=== PATIENT | male | born 1955 | race Caucasian/White ===

== ENCOUNTER → 2018-09-15 | Outpatient (CLI) | payer BC ==
[2016-01-23 10:21] VITALS: BP 136/81
[~2018-09-15] MED LIST: ASPI-482 PO; CRESTOR10 MG PO; CRESTOR20 MG PO; ESCITALOPRAM OX10 MG PO; GABA-585 PO; HYDR-3164 PO; IOHEXOL 300 MG/ML 100ML VIAL. IV ONE; PROP20TA PO; PROP80CA3 PO; RED600CA2 PO
--- NOTE | 2018-09-15 15:12 | KCIC ---
Carotid doppler ultrasound History: Peripheral vascular disease, hypertension, smoker, right bruit Multiple grayscale, color, and duplex spectral analysis waveform sonographic images were acquired of the carotid, subclavian, and vertebral arteries. Comparison: None Findings: RIGHT: PSV cm/sec EDV cm/sec Common carotid artery 137 15 Maximal internal carotid artery 119 19--- not seen beyond mid segment External carotid artery 176 Vertebral artery 31 ICA/CCA ratio 0.87 LEFT: PSV cm/sec EDV cm/sec Common carotid artery 88 24 Maximum internal carotid artery 179 76 External carotid artery 111 Vertebral artery 48 ICA/CCA ratio 2.03 Velocities used to determine stenosis are known to correlate with NASCET angiographic criteria. There is antegrade flow in the bilateral vertebral arteries. There is no demonstrable flow beyond the proximal right internal carotid artery, severe plaque of the right internal carotid artery. There is also prominent plaque of the common carotid arteries bilaterally greater on the right, also involvement of the left internal and external carotid arteries. There is some shadowing plaque of the left internal carotid artery which limits accurate evaluation of the entirety of the lumen, appearance of more focal stenosis. Impression: 1. There is apparent occlusion of the mid to distal right internal carotid artery. There is severe plaque of the right internal carotid artery, other scattered plaque of the bilateral common carotid arteries and also of the left internal and external carotid arteries. Shadowing plaque on the left somewhat limits accurate evaluation of the lumen. 2. Velocity elevation of the left internal carotid artery may be seen with 50-69% luminal diameter reduction. FOR INTERNAL CODING PURPOSES Critical result: Findings discussed with JENNY LABOY at 09/15/2018 3:00 PM. RESULT CODE: (C) Electronically signed by: Brett Tipton MD (09/15/2018 3:09 PM) [id number]
--- NOTE | 2018-09-16 10:13 | KCIC ---
PQRS Compliance Statement: One or more of the following individualized dose reduction techniques were utilized for this examination: 1. Automated exposure control 2. Adjustment of the mA and/or kV according to patient size 3. Use of iterative reconstruction technique CT angiography abdomen and iliofemoral runoff 09/16/2018 INDICATION: Peripheral artery disease with claudication. Prior surgery 2 years ago. COMPARISON: CTA abdomen/iliofemoral runoff December 30, 2015 TECHNIQUE: Multiple axial CT images of the abdomen and bilateral lower extremities was performed after the intravenous administration of 100 cc Omnipaque 300. Coronal and sagittal reformats are provided. FINDINGS: Stable 3 mm calcified nodule at the right lung base just above a vessel or granuloma. Mild bronchial wall thickening is compatible with bronchitis. Heart size is within normal limits. There is hypoattenuation of the hepatic parenchyma suggestive of hepatocellular disease. Cholelithiasis. No splenomegaly. Lateral limb left adrenal gland has nodular morphology measuring up to 8 mm in thickness. Right adrenal nodule measures 2.0 x 1.4 cm. Findings are stable and likely reflect benign adrenal adenomas. No suspicious pancreatic mass is visualized. Small left inguinal hernia containing fat. No pathologically enlarged lymph nodes are identified in abdomen or pelvis. There is no free fluid or free intraperitoneal air. There is a 3.8 cm simple cyst in the superior pole the left kidney, stable. The kidneys enhance symmetrically. There is no suspicious renal mass. There is no hydronephrosis. There are no suspected calculi within the kidneys, ureters or urinary bladder. There is mild colonic diverticulosis. A normal appendix is not visualized. There is similar appearance of a possible loop of small bowel extending into the right inguinal hernia. Prostate and seminal vesicles are normal in appearance with exception of a static calcifications. Urinary bladder is within normal limits given degree of distention. No suspicious osseous abnormality is identified. Vascular findings: Abdominal aorta at the aortic hiatus measures 2.7 x 2.6 cm. Origin of the celiac axis appears widely patent with patent origins of the common hepatic artery, splenic artery and left gastric artery. There is noncalcified atheromatous plaque at the origin of the superior mesenteric artery resulting in mild stenosis. Eccentric thrombus is identified within the mid superior mesenteric artery without occlusion. Mild stenosis of the origin of the right renal artery and mild stenosis of the origin of the left renal artery secondary to calcified and noncalcified atheromatous plaque. There is advanced calcified and noncalcified atheromatous plaque involving the abdominal aorta. Infrarenal abdominal aortic aneurysm measures 3.6 x 3.2 cm. Infrarenal abdominal aorta previously measured 3.0 x 2.8 cm December 30, 2015. Right common iliac artery is moderate calcified atheromatous plaque without significant stenosis, stable from prior examination. There is moderate to advanced calcified atheromatous plaque involving the right internal iliac artery, similar to the prior examination. Moderate calcified atheromatous plaque is identified involving the right sternal iliac artery with short segment 50% stenosis which appears stable along the mid right external iliac artery. Interval angioplasty of the right common femoral artery which is widely patent. There is moderate focal stenosis involving the proximal superficial femoral artery. Interval angioplasty with resolution of previously seen high-grade stenosis secondary to calcified plaque. Focal irregularities noted involving the right fissural femoral artery. There is moderate stenosis involving the proximal right popliteal artery. Stable dense calcified atheromatous plaque involving the popliteal artery in the popliteal fossa with likely high-grade stenosis. There is chronic appearing occlusion of the posterior tibial artery. Anterior tibial artery is mildly irregular, patent to the foot with patent dorsalis pedis artery. Peroneal artery appears patent. Mild irregularity of the left common iliac artery with chronic dissection flap. Moderate to advanced plaque is noted involving the left internal iliac artery. Moderate calcified atheromatous plaque is identified involving the left external iliac artery with mild irregularity. There is moderate focal stenosis involving the left common femoral artery which appears stable. Origin of the profunda appears intact. Left superficial femoral artery has mild calcified atheromatous plaque with mild irregularity. There is moderate calcified atheromatous plaque involving the left popliteal artery with moderate focal stenosis (series 4, image 454). Focal moderate stenosis of the popliteal artery is new from the prior examination. Dense calcified atheromatous plaque is identified in the left anterior tibial artery, limiting evaluation. Coronal artery is patent. Posterior tibial artery is patent to the foot. Left dorsalis pedis artery is poorly visualized. IMPRESSION: 1. Infrarenal abdominal aortic aneurysm measuring 2.6 x 3.2 cm, previously measuring 3.0 x 2.8 cm. 2. Interval angioplasty of the right common femoral artery and proximal superficial femoral artery. There is mild to moderate focal stenosis involving the proximal right superficial femoral artery. Next line 3. Stable dense calcified plaque involving the right popliteal artery in the popliteal fossa with suggestion of high-grade stenosis. 4. New moderate focal stenosis involving the left mid popliteal artery. 5. Moderate to advanced focal irregularity of the left anterior tibial artery with poor visualization of the left dorsalis pedis artery. Right anterior tibial artery is patent to the foot. 6. Similar moderate irregularity and focal stenosis involving the left common femoral artery. 7. Additional findings, as described in detail above. Electronically signed by: Hilda Bañuelos MD (09/16/2018 10:10 AM) [id number]
== END | disposition home or self-care (01) ==
LOC: KCIC CT 13:22
PROVIDERS: ATTEND Registered Nurse Medical-Surgical
DX: I65.23 Occlusion and stenosis of bilateral carotid arteries (principal); I71.4 Abdominal aortic aneurysm, without rupture; I70.8 Atherosclerosis of other arteries; I70.209 Unspecified atherosclerosis of native arteries of extremities, unspecified extremity; R91.1 Solitary pulmonary nodule; K57.30 Diverticulosis of large intestine without perforation or abscess without bleeding; K40.90 Unilateral inguinal hernia, without obstruction or gangrene, not specified as recurrent; N28.1 Cyst of kidney, acquired; I10 Essential (primary) hypertension; Z72.0 Tobacco use
CPT/HCPCS: 75635; 82565; 93880; Q9967

== ENCOUNTER → 2018-10-04 | Outpatient (CLI) | payer BC ==
[2016-01-23 10:21] VITALS: BP 136/81
[~2018-10-04] MED LIST changes: +CONTRAST GIVEN. MC PRN
--- NOTE | 2018-10-04 16:13 | KCIC ---
CTA neck History: Peripheral arterial disease, abnormal carotid Doppler exam Technique: After bolus of intravenous contrast, volumetric CT data acquisition was acquired of the neck. Multiplanar reconstruction images to include MIP and 3-D reconstruction images are submitted. Exposure: One or more of the following individualized dose reduction techniques were utilized for this examination: 1. Automated exposure control 2. Adjustment of the mA and/or kV according to patient size 3. Use of iterative reconstruction technique. Comparison: September 15, 2018 carotid Doppler exam Any determination of stenosis is based on NASCET criteria. Findings: There is occlusion of the right cervical internal carotid artery beginning at the common carotid artery bifurcation, visualization of segments of the right external carotid artery branches. There is scattered partially calcified plaque of the right common carotid artery most notable near the bifurcation, also extending to the proximal right internal carotid artery. There is also thrombus or soft plaque at the origin of the occluded right internal carotid artery. There is no significant visualization of the right cervical internal carotid artery beyond the very proximal aspect. There is also scattered calcified plaque of the left common carotid artery greater near the bifurcation, extent to the proximal left internal carotid artery. Maximal luminal diameter reduction of the left proximal internal carotid artery near origin is estimated about 55%. There is some calcified plaque near the left common carotid artery origin without significant focal stenosis. Left vertebral artery is diffusely dominant, markedly diminutive caliber of the right vertebral artery throughout its course although some contribution to the basilar artery. There is likely -type right posterior cerebral artery, possible tiny right P1 segment although does not obviously contribute to the more distal right posterior cerebral artery. There is some reconstitution of the right cavernous and ophthalmic internal carotid artery presumably from a patent anterior communicating artery. Lungs are not fully evaluated. There is emphysema of the visualized lung apices. There is some likely fibrotic change near the lung apices. There is also of focus of noncalcified nodularity of the right apex image 552 series 6 about 0.5 cm. There is what likely represents a node of the superficial left parotid gland as central fatty hilum about 0.7 cm short axis dimension. There is multilevel cervical facet degenerative change, contributes to some variable multilevel cervical neural foramina compromise. Impression: 1. There is occlusion of the right cervical internal carotid artery beginning at the bifurcation. There is plaque of the left carotid bulb and proximal internal carotid artery, maximal luminal diameter reduction of the proximal left internal carotid artery near origin estimated about 55%. There is likely -type right posterior cerebral artery, some reconstitution of the right cavernous and ophthalmic internal carotid artery presumably from patent anterior communicating artery. Intracranial vasculature is not fully evaluated on this exam. 2. Left vertebral artery is dominant, very diminutive caliber right vertebral artery. 3. There is a noncalcified right upper lobe nodule near the apex. If there are increased risk factors for neoplasm, dedicated chest CT may be indicated to further evaluate for nodules. Regarding the visualized nodule, 12 month follow-up could be performed as per revised Fleischner guidelines if increased risk factors for neoplasm, otherwise no additional follow-up needed if low risk factors. There is emphysema of the visualized lung apices. Electronically signed by: Brett Tipton MD (10/04/2018 4:10 PM) [facility]
== END | disposition home or self-care (01) ==
LOC: KCIC CT 08:08
PROVIDERS: ATTEND Registered Nurse Medical-Surgical
DX: I65.23 Occlusion and stenosis of bilateral carotid arteries (principal); J43.9 Emphysema, unspecified; R91.1 Solitary pulmonary nodule; I10 Essential (primary) hypertension; F17.200 Nicotine dependence, unspecified, uncomplicated
CPT/HCPCS: 70498; Q9967

== ENCOUNTER → 2019-08-04 | Outpatient (CLI) | payer BC ==
[2018-11-09 12:00] VITALS: BP 126/71
[~2019-08-04] MED LIST changes: -CONTRAST GIVEN. MC PRN; +CRESTOR40 MG PO; -IOHEXOL 300 MG/ML 100ML VIAL. IV ONE; +LISI-130 PO; +OXYC1TAB15 PO; +ZINC50TA39 PO
== END | disposition home or self-care (01) ==
LOC: LAB 13:30
PROVIDERS: ATTEND Surgery Vascular Surgery
DX: Z01.818 Encounter for other preprocedural examination (principal); Z11.59 Encounter for screening for other viral diseases
CPT/HCPCS: C9803; U0003; 36415

== ENCOUNTER 2019-08-08 08:29 | Outpatient (CLI) | payer BC ==
[2019-08-08] VITALS (9 sets, daily range): BP systolic 153–182; BP diastolic 74–94
[~2019-08-08] VITALS: Ht 182.9 cm; Wt 97.5 kg
[2019-08-08 09:13] LABS: HEMATOCRIT 35.9 % (39.0-53.0); HEMOGLOBIN 12.2 g/dL (13.0-17.5); RED BLOOD COUNT 3.92 x10^6/uL (4.30-5.70); RED CELL DISTRIBUTION WIDTH 14.8 % (11.5-14.5)
[2019-08-08 09:21] LABS: CALCIUM 8.3 mg/dL (8.5-10.1); GFR 74.8
--- NOTE | 2019-08-08 09:25 | PDOC ---
PROGRESS NOTES Subjective Subjective Pt seen and examined in the pre- cath area. H&P reviewed -- there have been no changes. He has a Hx of bilateral ilio-femoral endarterectomy and now has recurrent right leg claudication that has worsened over time and become quite severe and limiting. His right KEVIN is 0.41 We discussed angiography and intervention and the risks /benefits / alternatives, the possible need for surgery, etc and he wishes to proceed. Plan left femoral access, abdominal and bilateral LE runoff and possible right let intervention under conscious sedation and he wishes to proceed. ASA 3 Airway 2 Comment Review of Relevant I have reviewed the following items alena (where applicable) has been applied. Labs Laboratory Tests Test 08/08/19 09:05 White Blood Count 10.0 x10^3/uL (4.0-11.0) Red Blood Count 3.92 x10^6/uL (4.30-5.70) Hemoglobin 12.2 g/dL (13.0-17.5) Hematocrit 35.9 % (39.0-53.0) Mean Corpuscular Volume 92 fL (79-100) Mean Corpuscular Hemoglobin 31 pg (25-35) Mean Corpuscular Hemoglobin Concent 34 g/dL (31-37) Red Cell Distribution Width 14.8 % (11.5-14.5) Platelet Count 166 x10^3/uL (140-400) Laboratory Tests Test 08/08/19 09:05 White Blood Count 10.0 x10^3/uL (4.0-11.0) Red Blood Count 3.92 x10^6/uL (4.30-5.70) Hemoglobin 12.2 g/dL (13.0-17.5) Hematocrit 35.9 % (39.0-53.0) Mean Corpuscular Volume 92 fL (79-100) Mean Corpuscular Hemoglobin 31 pg (25-35) Mean Corpuscular Hemoglobin Concent 34 g/dL (31-37) Red Cell Distribution Width 14.8 % (11.5-14.5) Platelet Count 166 x10^3/uL (140-400) Medications Active Scripts Active Reported Lisinopril 40 Mg Tablet 1 Tab PO DAILY Zinc 50 Mg Tablet 0 PO DAILY Crestor (Rosuvastatin Calcium) 40 Mg Tablet 1 Tab PO QODAY Red Yeast Rice 600 Mg Capsule 600 Mg PO DAILY Not given today Propranolol Hcl 80 Mg Cap.sa.24h 1 Cap PO BID LAST DOSE GIVEN: DATE: 01/23/16 at 9:00am NEXT DOSE DUE: DATE: 01/23/16 at 9:00am Aspir 81 (Aspirin) 81 Mg Tablet.dr 1 Tab PO DAILY LAST DOSE GIVEN: DATE: 01/23/2016 at 9:00am NEXT DOSE DUE: DATE: 01/24/2016 AM Justicifation of Admission Dx: Justifications for Admission: Justification of Admission Dx: POPEYE Nava MD Aug 08, 2019 09:25
[2019-08-08 09:29] LABS: PROTHROMBIN TIME PATIENT 12.8 SEC (11.7-14.0)
[2019-08-08] MEDS ORDERED: IODIXANOL 320 MG/ML 100 ML VIAL. ONE (09:43)
[2019-08-08] MEDS ORDERED: LIDOCAINE 1% Multi-Dose 20 ML VIAL. ONE (09:43)
[2019-08-08] MEDS ORDERED: MIDAZOLAM HCL/PF 5 MG/5 ML VIAL. ONE (09:47)
[2019-08-08] MEDS ORDERED: HEPARIN for IV BOLUS 10,000 UNIT/10 ML VIAL. ONE (09:48)
[2019-08-08] MEDS ORDERED: fentaNYL PF VIAL 100 MCG/2 ML VIAL ONE (09:48)
[2019-08-08] MEDS ORDERED: fentaNYL PF VIAL 100 MCG/2 ML VIAL IV ONE (11:15)
[2019-08-08] MEDS ORDERED: LIDOCAINE 1% Multi-Dose 20 ML VIAL. INJ ONE (11:15)
[2019-08-08] MEDS ORDERED: IODIXANOL 320 MG/ML 100 ML VIAL. IART ONE (11:15)
[2019-08-08] MEDS ORDERED: MIDAZOLAM HCL/PF 5 MG/5 ML VIAL. IV ONE (11:15)
[2019-08-08] MEDS ORDERED: CONTRAST GIVEN. MC PRN (11:15)
--- NOTE | 2019-08-08 11:43 | PDOC4 ---
OPERATIVE NOTE Date: Date: Aug 08, 2019 Pre-Op Diagnosis: Atherosclerosis of solomon arteries of bilateral extremities with severe short distance claudication right leg History of bilateral iliofemoral endarterectomy KEVIN 0.4 right lower extremity Post-Op Diagnosis: Same as above Bilateral iliac artery stenosis versus dissection Small AAA Procedure Performed: 1. Ultrasound-guided access left common femoral artery #2 placement of catheter within the aorta CPT 30306 #3 bilateral lower extremity runoff radiology supervision interpretation #4 aortogram supervision and interpretation #5 placement of closure device left femoral artery access site 5 [place]ut Mynx Surgeon: Fransico Soto MD Vascular surgery Anesthesia Type: Conscious sedation under surgeon and RN supervision using intravenous fentanyl and Versed 30 minutes Versed 1 mg fentanyl 50 mcg Blood Loss: Minimal Specimans Obtained: None Findings: The infrarenal aorta shows what appears to be a small AAA, no significant occlusive disease. The visceral vessels are patent on single AP view Bilateral common iliac arteries show a central luminal filling defect that appears to be calcified, there appear to be 2 separate flow channels within each common iliac artery. It is unclear if this is irregular plaque or focal dissection Bilateral external iliac arteries have moderate calcified stenosis Bilateral common femoral artery endarterectomy sites appear widely patent, bilateral profunda femoris arteries appear patent The right proximal superficial femoral artery is patent, the right distal superficial femoral artery and proximal popliteal artery show calcified high- grade stenosis. The P3 segment of the right popliteal artery and three-vessel tibial disease appear to be reasonably patent The left superficial femoral artery popliteal artery and tibial vessels appear patent without significant flow-limiting stenosis Complications: None Operative Note: Patient was taken to the [employer] and placed supine on the table. The groins were prepped and draped in usual sterile fashion. An appropriate timeout was performed. Conscious sedation was induced under surgeon and RN supervision using intr avenous fentanyl and Versed after confirmation of appropriate monitoring devices. Attention was directed to the left common femoral artery which was fluoroscopically marked over the femoral head and examined with ultrasound. The vessels found to be widely patent with good flow and an image of the vessels taken and saved for the medical record. Under real-time ultrasound guidance local anesthetic was injected in the left groin and the left common femoral artery was accessed with a micropuncture needle. Placement was confirmed under fluoroscopy after the needle was used to introduce a micropuncture wire into the iliac artery. The cylinder technique was used to exchange the needle for micropuncture sheath which backbled easily. This was used to introduce a supra core wire into the aorta and exchange the micropuncture sheath for a 5 [place] sheath which was aspirated and flushed without difficulty. These were used to introduce a flush catheter into the suprarenal abdominal aorta and an aortogram was obtained. The cath was pulled back to the aorta bifurcation and oblique pelvic angiograms were obtained. I attempted to cross the aortic bifurcation but was unable to get a wire through the suspicious part of the right common artery after multiple attempts. With the catheter just above the bifurcation bilateral lower extremity stepped off runoff was obtained down to the feet. The catheter was removed over wire and the sheath was used to deliver and deploy a 5 Y[place] minx closure device to the left femoral artery access site with excellent hemostasis. Given the AAA, the abnormal appearance of the iliac arteries with stenosis versus dissection, and the complicated nature of this I decided to get a CT angiogram to better delineate the problem prior to intervention. I discussed all this with the patient and he agrees. He will be discharged home today with outpatient CTA and follow-up with POPEYE Fuentes MD Aug 08, 2019 11:43
--- NOTE | 2019-08-08 13:49 | NUR ---
Discharge Note: WIL DUFF Discharge instructions and discharge home medications reviewed with Patient and a copy given. All questions have been answered and understanding verbalized. The following instructions and handouts were given: Groin site care, moderate sedation Discontinued lines and drains: Right AC IV dc'd and tip intact. Patient discharged to home with friend Christin via personal vehicle.
== END 2019-08-08 13:30 | disposition home or self-care (01) ==
LOC: CCL 08:29
PROVIDERS: ATTEND Surgery Vascular Surgery
DX: I70.213 Atherosclerosis of native arteries of extremities with intermittent claudication, bilateral legs (principal); I71.4 Abdominal aortic aneurysm, without rupture
CPT/HCPCS: 36200; 36415; 75625; 75716; 76937; 80048; 85027; 85610; 99152; 99153; C1713; C1769; C1892; C1894; G0269; J1644; J2250; J3010; J3490; Q9967

== ENCOUNTER → 2019-08-15 | Outpatient (CLI) | payer BC ==
[2019-08-08 13:13] VITALS: BP 159/87
[~2019-08-15] MED LIST changes: +IOHEXOL 350 MG/ML 100 ML VIAL. IV ONE
--- NOTE | 2019-08-15 11:03 | RAD ---
CT ANGIOGRAPHY ABD AND PELVIS Indication: Abdominal aortic aneurysm Technique: Pre and postcontrast CT imaging was performed of the abdomen pelvis, multiplanar reconstruction images to include MIP and 3-D reconstruction images submitted. One or more of the following individualized dose reduction techniques were utilized for this examination: 1. Automated exposure control 2. Adjustment of the mA and/or kV according to patient size 3. Use of iterative reconstruction technique. Comparison: September 15, 2018 Findings: There is again infrarenal abdominal aortic aneurysm, maximal axial dimension about 3.8 cm transverse by 3.8 cm AP, previously about 3.6 cm transverse by 3.6 cm AP. This begins about 5.2 cm inferior to the left renal artery origin. There is again atherosclerotic calcification of the iliac arteries bilaterally, similar degree of narrowing of the right external iliac artery about 50%. There is again narrowing of the tortuous right common iliac artery, maximal luminal diameter reduction estimated about 65-70%. There are again significant stenoses of the internal iliac arteries bilaterally. There is degree of narrowing of the visualized proximal superficial femoral arteries bilaterally, legs none evaluated on this exam. There is visualization of the inferior mesenteric artery, likely degree of narrowing near the ostium. Celiac and superior mesenteric arteries are patent, again noncalcified plaque of the proximal superior mesenteric artery also plaque more distally. There are again 2 left renal arteries, calcified plaque greater of the dominant left renal artery. There is also plaque of the single right renal artery. There is no abnormality of the limited visualized lung bases. There is a 3.2 cm exophytic hypodense lesion of the superior left kidney with density measurements of a cyst 12 Hounsfield units. There is some vascular calcification of the renal hilar regions bilaterally. There is 1.2 cm gallstone. There is small possible left adrenal nodule about 1 cm stable dating back to 2016 exam. Fullness of right adrenal gland is also similar dating back to older exam. Bowel is not dilated. There is no free fluid or free air. There is colonic diverticulosis greatest of the sigmoid colon not associated with significant inflammatory type change. There is some fat in the left inguinal canal, no bowel. There is lumbar degenerative disc disease greatest L4-5 and L5-S1. There is a 1.1 cm short axis likely node of the superior abdomen located superior to the pancreas larger than previous exam as best seen image 340 series 8, previously about 0.6 cm on the September 2018 exam. There is another node just anteriorly image 337 series 8 measuring about 0.6 cm short axis dimension also larger as previously 0.3 cm. IMPRESSION: 1. Infrarenal abdominal aortic aneurysm is somewhat larger now up to 3.8 cm versus previously 3.6 cm. 2. There are some larger nonspecific nodes of the superior abdomen, one of which is considered somewhat enlarged. While these could be reactive/degenerative, neoplastic etiology is not excluded. Short-term follow-up to assess stability such as in 3 months could be beneficial or evaluation with PET CT. 3. There is multifocal atherosclerotic plaque. 4. There is cholelithiasis. 5. There is colonic diverticulosis. 6. There is left renal cyst. Electronically signed by: Brett Tipton MD (08/15/2019 11:00 AM) [id number]
== END | disposition home or self-care (01) ==
LOC: CT 09:29
PROVIDERS: ATTEND Surgery Vascular Surgery
DX: I71.4 Abdominal aortic aneurysm, without rupture (principal); I70.0 Atherosclerosis of aorta; I70.8 Atherosclerosis of other arteries; I70.1 Atherosclerosis of renal artery; N28.1 Cyst of kidney, acquired; K57.30 Diverticulosis of large intestine without perforation or abscess without bleeding; K80.20 Calculus of gallbladder without cholecystitis without obstruction; M51.37 Other intervertebral disc degeneration, lumbosacral region; I10 Essential (primary) hypertension; F17.200 Nicotine dependence, unspecified, uncomplicated
CPT/HCPCS: 74174; Q9967

== ENCOUNTER → 2019-09-25 | Outpatient (CLI) | payer BC ==
[2019-08-08 13:13] VITALS: BP 159/87
[~2019-09-25] MED LIST changes: -IOHEXOL 350 MG/ML 100 ML VIAL. IV ONE
== END | disposition home or self-care (01) ==
LOC: LAB 13:04
PROVIDERS: ATTEND Surgery Vascular Surgery
DX: Z01.818 Encounter for other preprocedural examination (principal); Z11.59 Encounter for screening for other viral diseases
CPT/HCPCS: U0003-CS

== ENCOUNTER 2019-09-28 07:00 | Outpatient (CLI) | payer BC ==
[2019-09-28] VITALS (17 sets, daily range): BP systolic 114–194; BP diastolic 51–93
[~2019-09-28] VITALS: Ht 182.9 cm; Wt 95.3 kg
[2019-09-28 07:36] LABS: HEMATOCRIT 38.5 % (39.0-53.0); HEMOGLOBIN 13.1 g/dL (13.0-17.5); RED BLOOD COUNT 4.2 x10^6/uL (4.30-5.70); RED CELL DISTRIBUTION WIDTH 14.9 % (11.5-14.5); WHITE BLOOD COUNT 8.9 x10^3/uL (4.0-11.0)
[2019-09-28] MEDS ORDERED: IODIXANOL 320 MG/ML 100 ML VIAL. ONE (07:40)
[2019-09-28] MEDS ORDERED: LIDOCAINE 1% Multi-Dose 20 ML VIAL. ONE (07:41)
[2019-09-28 07:44] LABS: CALCIUM 9.1 mg/dL (8.5-10.1); CREATININE 1.1 mg/dL (0.7-1.3); POTASSIUM 4.3 mmol/L (3.5-5.1)
[2019-09-28 07:46] LABS: PROTHROMBIN TIME PATIENT 12.3 SEC (11.7-14.0)
[2019-09-28] MEDS ORDERED: MIDAZOLAM HCL/PF 5 MG/5 ML VIAL. ONE (08:30)
[2019-09-28] MEDS ORDERED: HEPARIN for IV BOLUS 10,000 UNIT/10 ML VIAL. ONE (08:30)
[2019-09-28] MEDS ORDERED: fentaNYL PF VIAL 250 MCG/5 ML VIAL ONE (08:30)
--- NOTE | 2019-09-28 08:37 | PDOC1 ---
H & P. HPI: 64 y/o male with a Hx of bilateral ilio-femoral endarterectomy for short distance claudication. He had resolution of claudication in both legs initially but now has recurrence of claudication in the right leg, left still asymptomatic. He has no wounds and no ischemic rest pain. His KEVIN is 0.5 on the right, left 0.93 He does smoke and we discussed again the need for smoking cessation and tobacco abuse's contribution to vascular disease and recurrence. He describes his sx as focal aching pain in the right calf that occurs with short distance walking, improves with rest, no other provocative / palliative factors, severe 7/10 and lifestyle limiting. ROS: Constitutional: Denies fever, fatigue, chills HEENT: Denies sore throat, vision changes Cardio: Denies chest pain, dyspnea with exertion, syncope, palpitations, edema Pulmonary: Denies shortness of breath, cough, wheezing GI: Denies nausea, vomiting, diarrhea, constipation : Denies dysuria, frequency, urgency, incontinence Skin: Denies new lesions Neuro: Denies weakness, paresthesias ED COURSE: not ED patient -- here for elective procedure PMH: HTN Tobacco abuse dyslipidemia HTN FAMILY HX: DM dyslipidemia HTN CAD SOCIAL HX: tobacco abuse -- current smoker no ETOH or drug abuse SURGICAL HX: femoral endarterectomy bilateral Hernia inguinal MEDS: Reviewed and reconciled ALLERGIES: Gemfibrozil PE: Alert, oriented, no acute distress EOMI, sclera non-icteric Neck supple RRR, no murmur CTAB, no wheezes, crackles or rhonchi Soft, NT, ND, normal bowel sounds, no rebound, guarding. Negative Corrales's sign. No edema, cyanosis. Normal capillary refill. Calm, cooperative, mood/affect within normal limits ASSESSMENT & PLAN: Right leg claudication -- recurrent after femoral endarterectomy We plan left femoral access, runoff and possible right leg intervention we discussed the procedure, risks, benefits, alternatives and he wishes to proceed. consent signed ASA 2 Airway 2 Justicifation of Admission Dx: Justifications for Admission: Justification of Admission Dx: POPEYE Nava MD Sep 28, 2019 08:37
[2019-09-28] MEDS ORDERED: LIDOCAINE 1% Multi-Dose 20 ML VIAL. INJ ONE (09:00)
[2019-09-28] MEDS ORDERED: IODIXANOL 320 MG/ML 100 ML VIAL. IART ONE (09:00)
[2019-09-28] MEDS ORDERED: fentaNYL PF VIAL 250 MCG/5 ML VIAL IV ONE (09:00)
[2019-09-28] MEDS ORDERED: MIDAZOLAM HCL/PF 5 MG/5 ML VIAL. IV ONE (09:00)
[2019-09-28] MEDS ORDERED: CONTRAST GIVEN. MC PRN (09:15)
[2019-09-28] MEDS ORDERED: PROTAMINE 50 MG/5 ML VIAL. IV ONE ×2 (10:03→10:15)
[2019-09-28] MEDS ORDERED: HEPARIN for IV BOLUS 10,000 UNIT/10 ML VIAL. IV ONE (10:15)
[2019-09-28] MEDS ORDERED: hydrALAZINE 20 MG/ML VIAL. ONE (10:15)
[2019-09-28] MEDS ORDERED: hydrALAZINE 20 MG/ML VIAL. IVP ONE (10:30)
--- NOTE | 2019-09-28 10:52 | PDOC4 ---
OPERATIVE NOTE Date: Date: Sep 28, 2019 Pre-Op Diagnosis: Atherosclerosis of [place] arteries of bilateral lower extremities with severe short distance right lower extremity claudication history of bilateral iliofemoral endarterectomy Right lower extremity KEVIN 0.5 with worsening short distance claudication nonresponsive to walking Post-Op Diagnosis: Same as above Procedure Performed: 1. Ultrasound-guided access left common femoral artery #2 placement of catheter within the aorta from left femoral access #3 ultrasound-guided access right common femoral artery #4 right common iliac artery stent 7 x 59 and 7 x 29 [place] VBX stents postdilated with a 9 mm balloon #5 right external iliac artery balloon angioplasty with a 7 x 60 balloon #6 radiology supervision interpretation aortogram #7 radiology supervision interpretation bilateral lower extremity runoff Surgeon: Fransico Powell MD Vascular surgery Anesthesia Type: Conscious sedation under surgeon and RN supervision using intravenous fentanyl and Versed Versed 2 mg fentanyl 100 mcg total 65 minutes Blood Loss: Minimal Specimans Obtained: None Findings: 1. Small aortic aneurysm #2 right common iliac artery a few stenosis treated with stents as above, left common external iliac artery widely patent #3 right external iliac artery diffuse stenosis treated with angioplasty as above both with good results minimal residual stenosis no complications #4 bilateral iliofemoral endarterectomy sites widely patent #5 bilateral profundofemoral endarterectomy site is widely patent 6 left SFA and popliteal widely patent #7 right SFA patent with mild diffuse stenosis # #8 focal occlusion at the P2 segment of the right popliteal artery very short, below the knee the anterior tibial and peroneal artery give inline flow to the foot Complications: None Operative Note: Patient was taken to the Transitional Nurse and placed supine the table. The groins were prepped and draped in the usual sterile fashion. An appropriate timeout was performed. Attention was directed to the left common femoral artery which was fluoroscopically marked over the femoral head and examined with ultrasound. The vessel was found to be widely patent with good flow and an image of the vessel was taken and saved for the medical record. Under real-time ultrasound guidance local anesthetic was injected in the left groin and the left common femoral artery was accessed in retrograde fashion under ultrasound guidance with a micropuncture needle. This was used to place a micropuncture wire into the aorta and exchanged the needle for a micropuncture sheath. This was used to introduce a Glidewire advantage into the aorta and exchanged the micropuncture sheath for a 5 Japanese sheath which was aspirated and flushed without difficulty. This was used to introduce a flush catheter into the aorta and an aortogram was obtained. The cath was pulled back to aortic bifurcation and oblique pelvic angiograms were obtained. I then used the catheter to obtain bilateral lower extremity runoff through the knees. Attention was directed to the right common femoral artery which was fluoroscopically marked over the femoral head and examined with ultrasound. The vessel was found to be widely patent with good flow and an image of the vessel was taken and saved for the medical record. Under real-time ultrasound guidance local anesthetic was injected in the left groin and the left common femoral artery was accessed in retrograde fashion under ultrasound guidance with a micropuncture needle. This was used to place a micropuncture wire into the ao rta and exchanged the needle for a micropuncture sheath. This was used to introduce a Glidewire advantage into the aorta and exchanged the micropuncture sheath for a 7 Japanese sheath which was aspirated and flush without difficulty. These were used to introduce a 7 x 59 [place] VBX stent into the right common iliac artery and this was deployed under fluoroscopic guidance and then postdilated with an 8 mm balloon. There was still a proximal segment untreated and so I produced a second 7 x 29 stent into the very proximal common iliac artery and deployed this right at the aorta bifurcation and postdilated with the same balloon. Oblique angiograms of the pelvis showed the external iliac artery with diffuse stenosis and so this was treated with angioplasty with a 7 x 60 balloon with good results. Pressure gradient was measured from the aorta to the right groin and there was still a decent pressure gradient and so the common iliac artery stent was postdilated with a 9 mm balloon its entire length as it still appeared slightly smaller than the underlying vessel compared to the opposite side this showed nice luminal gain and expansion of the stent with brisk flow and a reduction in the pressure gradient. On the right side the sheath was used to obtain further angiograms from the knee to the foot which were difficult to visualize with a catheter in the aorta. Protamine was used to reverse the heparin. On the right side the sheath was removed over wire and the wire was used to deliver a pro-glide device which was deployed at the right femoral artery access site with excellent hemostasis. An image of the right side was obtained from the left with brisk flow no complications from access for closure. On the left side I attempted to deploy a 5 Japanese minx device but this failed and pressure was held for 15 minutes with excellent hemostasis. Patient was escorted home in stable condition I discussed the findings with him and we will plan on letting go home today and a follow-up in the office in 3 to 4 weeks with ABIs. No change in medications he is already on a aspirin and high-dose statin. We discussed the need for smoking cessation. POPEYE POWELL MD Sep 28, 2019 10:52
--- NOTE | 2019-09-28 14:55 | NUR ---
Discharge Note: WIL DUFF Discharge instructions and discharge home medications reviewed with Patient and a copy given. All questions have been answered and understanding verbalized. The following instructions and handouts were given: Groin site care and Moderate sedation. Discontinued lines and drains: Right hand IV dc'd and tip intact. Patient discharged to home with girlfriend via Personal vehicle.
== END 2019-09-28 14:45 | disposition home or self-care (01) ==
LOC: CCL 07:00
PROVIDERS: ATTEND Surgery Vascular Surgery
DX: I73.9 Peripheral vascular disease, unspecified (principal); I25.10 Atherosclerotic heart disease of native coronary artery without angina pectoris; I10 Essential (primary) hypertension; E78.5 Hyperlipidemia, unspecified; E11.9 Type 2 diabetes mellitus without complications; F17.210 Nicotine dependence, cigarettes, uncomplicated; I70.8 Atherosclerosis of other arteries; I72.3 Aneurysm of iliac artery; I71.9 Aortic aneurysm of unspecified site, without rupture; Z83.3 Family history of diabetes mellitus; Z82.49 Family history of ischemic heart disease and other diseases of the circulatory system; Z98.890 Other specified postprocedural states; Z88.8 Allergy status to other drugs, medicaments and biological substances
CPT/HCPCS: 36415; 37221; 37222; 75625; 75716; 76937; 80048; 85027; 85610; 99152; 99153; C1713; C1725; C1760; C1769; C1892; C1894; J0360; J1644; J2250; J2720; J3010; J3490; Q9967; G0269; C1771; C1874